=== PATIENT | male | born 1985 | race Caucasian/White ===

== ENCOUNTER 2016-07-19 22:38 | Emergency (ER) | payer OTHER ==
[2016-07-19] MEDS ORDERED: IBUPROFEN 800 MG TABLET PO ONE (23:18)
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
[2016-07-20 03:29] VITALS: BP 114/77
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
== END 2016-07-20 03:45 | disposition home or self-care (01) ==
LOC: ER 22:38
DX: S49.91XA Unspecified injury of right shoulder and upper arm, initial encounter (principal); M25.511 Pain in right shoulder; V49.9XXA Car occupant (driver) (passenger) injured in unspecified traffic accident, initial encounter; F17.210 Nicotine dependence, cigarettes, uncomplicated; Z71.6 Tobacco abuse counseling
CPT/HCPCS: 99283